=== PATIENT | male | born 1990 | race Caucasian/White ===

== ENCOUNTER 2025-03-31 02:50 | Emergency (ER) | payer OTHER ==
[~2025-03-31] VITALS: Ht 180.3 cm; Wt 79.4 kg
[2025-03-31] MEDS ORDERED: AMOCLA875 PO (03:12)
[2025-03-31] MEDS ORDERED: RX Prepack 6 Tabs Oxycodone 5mg UD ONE (03:15)
== END 2025-03-31 03:37 | disposition home or self-care (01) ==
LOC: ER 02:50 → EDBD 02:50 → ER 03:37
DX: K04.7 Periapical abscess without sinus (principal); K02.9 Dental caries, unspecified
CPT/HCPCS: 99282; A9270